=== PATIENT | male | born 1965 | race Caucasian/White ===

== ENCOUNTER 2020-10-04 09:25 | Outpatient (RCR) | payer OTHER, SELFPAY ==
[2020-06-06 13:30] VITALS: BMI 23.1
[2020-10-04] MEDS: COVID-19 VACC, MRNA(PFIZER)/PF 30 MCG/0.3 ML SYRINGE IM (07:16)
[2020-10-25] MEDS: COVID-19 VACC, MRNA(PFIZER)/PF 30 MCG/0.3 ML SYRINGE IM (07:11)
== END 2020-10-04 23:59 ==
LOC: IMMUN 09:25
PROVIDERS: Visit Provider Family Medicine
DX: Z23 Encounter for immunization (principal)
CPT/HCPCS: 0001A; 0002A; 91300